=== PATIENT | female | born 1985 | race Caucasian/White ===

== ENCOUNTER 2017-09-13 16:34 | Emergency (ER) | payer BC, OTHER ==
[~2017-09-13] VITALS: Ht 160 cm; Wt 90.7 kg
[~2017-09-13 16:34] MED LIST: ANTIVERT25 MG PO; CIPROFLOXACIN500 MG PO; CLOTRIMAZOLE100 MG VAGINAL; DICLEGIS DR 101 EACH PO; GINGER500 MG PO; MACROBID 100 M100 MG PO; METOCLOPRAMIDE10 MG PO; TRAMADOL HCL50 MG PO; VISTARIL50 MG PO; ZOFRAN ODT4 MG SL; ZOFRAN4 MG PO; ZOFRAN8 MG PO
== END 2017-09-13 19:50 | disposition home or self-care (01) ==
LOC: ED 16:34
DX: R55 Syncope and collapse (principal); R41.82 Altered mental status, unspecified; Z88.0 Allergy status to penicillin; Z88.8 Allergy status to other drugs, medicaments and biological substances
CPT/HCPCS: 70450; 80053; 81001; 84443; 84703; 85025; 85651; 99284; G0480

== ENCOUNTER → 2018-01-24 | Emergency (ER) | payer OTHER, BC ==
[~2018-01-24] VITALS: Ht 160 cm; Wt 99.8 kg
[~2018-01-24] MED LIST changes: +BACLOFEN10 MG PO; +BENADRYL25 MG PO; +CYCLOBENZAPRINE5 MG PO; +KETOROLAC TROME10 MG PO; +METHYLPREDNISOLO4 M1 PO; +TYLENOL325 MG PO
== END ==
LOC: ED 13:53
DX: M99.02 Segmental and somatic dysfunction of thoracic region (principal); M62.838 Other muscle spasm; Z88.0 Allergy status to penicillin; Z88.8 Allergy status to other drugs, medicaments and biological substances; V49.9XXA Car occupant (driver) (passenger) injured in unspecified traffic accident, initial encounter
CPT/HCPCS: 99283

== ENCOUNTER 2020-06-12 11:29 | Emergency (ER) | payer BC, OTHER ==
[~2020-06-12] VITALS: Ht 160 cm; Wt 104.3 kg
--- NOTE | 2020-06-13 12:08 | EKG ---
[facility] [address] [facility] [place] [address] Signed Normal sinus rhythm Possible Anterior infarct , age undetermined Abnormal ECG No previous ECGs available Confirmed by SRI GROVER MD ([id number]) on 06/13/2020 12:08:39 PM Electronically Signed By: SRI GROVER MD 06/13/20 1208 PATIENT NAME: MIGUEL A RIVEAR LOLA Electrocardiogram DATE OF : 89 PHYSICIAN: SRI GROVER MD REPORT #: [id number] REPORT IS CONFIDENTIAL AND NOT TO BE RELEASED WITHOUT AUTHORIZATION
== END 2020-06-12 16:06 | disposition home or self-care (01) ==
LOC: ED 11:29
DX: R07.89 Other chest pain (principal); Z88.0 Allergy status to penicillin; Z88.8 Allergy status to other drugs, medicaments and biological substances
CPT/HCPCS: 71045; 80053; 83735; 84484; 85025; 93005; 93010; 99285-25

== ENCOUNTER 2021-07-16 08:50 | Emergency (ER) | payer BC ==
[~2021-07-16] VITALS: Ht 160 cm; Wt 104.3 kg
--- OUTSIDE RECORDS SUMMARY | 2021-07-16 08:52 | XMS ---
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 Mack has no Care Guidelines for this patient. [place] VISIT COUNT (12 MO.) 1 NATHAN Bee TOTAL 1 NOTE: Visits indicate total known visits. ED/C VISIT TRACKING (12 MO.) 07/16/2021 08:51 NATHAN Ham [place] TYPE: Emergency COMPLAINT: - COUGH,DIFFICULTY BREATHING INPATIENT VISIT TRACKING (12 MO.) No inpatient visits to display in this time frame [email or web address]
[2021-07-16] MEDS ORDERED: DOXYCYCLINE HY100 MG PO (09:04)
[2021-07-16] MEDS ORDERED: VENTOLIN HFA18 GM INH (09:04)
[2021-07-16] MEDS ORDERED: PREDNISONE20 MG PO (09:04)
== END 2021-07-16 09:30 | disposition home or self-care (01) ==
LOC: ED 08:50
DX: J40 Bronchitis, not specified as acute or chronic (principal); Z88.0 Allergy status to penicillin; Z88.8 Allergy status to other drugs, medicaments and biological substances; Z79.899 Other long term (current) drug therapy
CPT/HCPCS: 71045; 99283-25

== ENCOUNTER 2023-04-08 23:23 | Emergency (ER) | payer BC ==
[~2023-04-08] VITALS: Ht 160 cm; Wt 119.0 kg
[~2023-04-08 23:23] MED LIST changes: +DOXYCYCLINE HY100 MG PO; +PREDNISONE20 MG PO; +VENTOLIN HFA18 GM INH
[2023-04-08] MEDS ORDERED: ALDACTONE25 MG (23:35)
[2023-04-08] MEDS ORDERED: LEVOTHYROXINE13 MCG PO (23:35)
[2023-04-08] MEDS ORDERED: ONDANSETRON ODT8 MG (23:35)
[2023-04-08] MEDS ORDERED: METFORMIN HCL500 MG (23:35)
[2023-04-09 02:50] VITALS: BP 115/72
== END 2023-04-09 02:51 | disposition home or self-care (01) ==
LOC: ED 23:23
DX: R59.0 Localized enlarged lymph nodes (principal); Z88.0 Allergy status to penicillin; Z79.84 Long term (current) use of oral hypoglycemic drugs
CPT/HCPCS: 70491; 99283-25; Q9967

== ENCOUNTER 2023-11-04 14:00 | Emergency (ER) | payer BC ==
[~2023-11-04] VITALS: Ht 160 cm; Wt 102.4 kg
[~2023-11-04 14:00] MED LIST changes: +ALDACTONE25 MG; +LEVOTHYROXINE13 MCG PO; +METFORMIN HCL500 MG; +OMEPRAZOLE20 MG PO; +ONDANSETRON ODT8 MG; +ONDANSETRON ODT8 MG PO; +PHENTERMINE H37.5 MG PO; +SPIRONOLACTONE25 MG PO
--- OUTSIDE RECORDS SUMMARY | 2023-11-04 14:03 | XMS ---
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 Mack has no Care Guidelines for this patient. Chayo VISIT COUNT (12 MO.) 2 NATHAN Bee TOTAL 2 NOTE: Visits indicate total known visits. ED/C VISIT TRACKING (12 MO.) 11/04/2023 14:02 NATHAN Ham [place] TYPE: Emergency COMPLAINT: - WATER POURING FROM NOSE, STIFF NECK,TASTING COPPER 04/08/2023 23:24 NATHAN Ham [place] TYPE: Emergency COMPLAINT: - SOB DIAGNOSES: - Allergy status to penicillin - Foreign body sensation, throat - Localized enlarged lymph nodes - director long term care (current) use of oral hypoglycemic drugs - FOREIGN BODY SENSATION, THROAT INPATIENT VISIT TRACKING (12 MO.) No inpatient visits to display in this time frame [email or web address]
[2023-11-04] MEDS ORDERED: ondansetron HCL 4 MG/2 ML VIAL IV ONE (15:15)
[2023-11-04] MEDS ORDERED: SODIUM CHLORIDE 0.9% 1,000 ML IV ONE (15:15)
[2023-11-04] MEDS ORDERED: PANTOPRAZOLE SODIUM 40 MG/10 ML VIAL IV ONE (15:15)
[2023-11-04] MEDS ORDERED: DOXYCYCLINE HY100 MG PO (16:26)
[2023-11-04 16:36] VITALS: BP 113/70
== END 2023-11-04 16:36 | disposition home or self-care (01) ==
LOC: ED 14:00
DX: U07.1 COVID-19 (principal); Z91.148 Patient's other noncompliance with medication regimen for other reason; J45.909 Unspecified asthma, uncomplicated; Z79.899 Other long term (current) drug therapy; Z88.0 Allergy status to penicillin; Z88.8 Allergy status to other drugs, medicaments and biological substances
CPT/HCPCS: 80053; 83690; 85025; 99283